=== PATIENT | male | born 1985 | race Hispanic/Latino ===

== ENCOUNTER 2021-07-28 21:08 | Inpatient (IN) | payer BC ==
[2021-07-28] MEDS ORDERED: ALBUTEROL 2.5 MG/3 ML NEBU IH ONE (21:14)
[2021-07-28] MEDS ORDERED: EPINEPHrine/PF 1 MG/1 ML INJ SUB-Q ONE (21:15)
[2021-07-28] MEDS ORDERED: dexAMETHasone 20 MG/5 ML VIAL IM ONE (21:15)
--- NOTE | 2021-07-28 21:57 | XRay Report ---
NECK SOFT TISSUE 2 VIEW(S) INDICATION / CLINICAL INFORMATION: dyspnea and neck swelling COMPARISON: None available. FINDINGS: EPIGLOTTIS: No significant abnormality. RETROPHARYNGEAL SOFT TISSUES: No significant abnormality. AIRWAY: No significant abnormality. RADIOPAQUE FOREIGN BODY: None. SKELETAL SYSTEM: No significant abnormality. ADDITIONAL FINDINGS: None. IMPRESSION: 1. No significant abnormality. Signer Name: Irvin Holley MD Signed: 07/28/2021 9:52 PM Workstation Name: [id number]
[2021-07-28] MEDS ORDERED: SODIUM CHLORIDE 0.9% 1000 ML 1,000 ML IV ONE (23:24)
[2021-07-28] MEDS ORDERED: diphenhydrAMINE 50 MG/ML VIAL IV STA (23:24)
[2021-07-28 23:46] LABS: Basophils % (Auto) 0.5 % (0.0-1.8); Eosinophils # (Auto) 0.1 K/mm3 (0.0-0.4); Lymphocytes # (Auto) 1.1 K/mm3 (1.2-5.4); Mean Corpuscular HGB Conc 36 % (32-34); Mean Corpuscular Volume 86 fl (84-94); Monocytes # (Auto) 0.5 K/mm3 (0.0-0.8); Monocytes % (Auto) 4.7 % (0.0-7.3); Platelet Count 335 K/mm3 (140-440); Red Cell Distribution Width 13.2 % (13.2-15.2)
[2021-07-28 23:54] LABS: BUN/Creatinine Ratio 23; Blood Urea Nitrogen 14 mg/dL (9-20); Calcium 9.4 mg/dL (8.4-10.2); Hemolysis Index 2
[2021-07-29 00:04] LABS: Hematocrit 40.2 % (35.5-45.6); Hemoglobin 14.5 gm/dl (11.8-15.2)
--- NOTE | 2021-07-29 00:26 | Cat Scan Report ---
CT neck wo con INDICATION / CLINICAL INFORMATION: 36 years Male; coughing, sob, allergic reaction. TECHNIQUE: Contiguous thin cut axial images obtained through the neck following IV contrast. Sagittal and barber l reconstructions performed by the technologist. All CT scans at this location are performed using CT dose reduction for ALARA by means of automated exposure control. COMPARISON: None available. FINDINGS: MUCOSAL SPACE: The motion degrades the image quality particularly along the pharynx which may be rela kolby to swallowing. There is also streak artifact resulting from the dental amalgam. The visualized es ophagus appears to be appropriate in size. The laryngeal structures are better visualized and appear fairly symmetric. The upper esophagus is grossly unremarkable. LYMPH NODES: There are multiple scattered cervical lymph nodes most notable within the jugulodigastri c regions with the largest node measuring approximately 1.3 cm in short axis dimension. The findings are nonspecific though may be reactive. However, the nodes are borderline by size criteria and number and correlation be needed regarding inflammatory process. SALIVARY GLANDS: The visualized parotid and submandibular glands demonstrates symmetric attenuation w ithout calcification. THYROID GLAND: Unremarkable. PARANASAL SINUSES: There is minimal mucosal thickening within the maxillary sinuses. SPINE: No significant abnormality of the cervical spine appreciated. VASCULAR STRUCTURES: The vascular structures are grossly unremarkable on this noncontrast study. Ther e is no significant narrowing of the visualized airway. IMPRESSION: 1. There are scattered cervical lymph nodes which are borderline by size criteria as detailed above a nd correlation would be needed. 2. The motion degrades the image quality as described; however, there is no clear CT evidence of sign ificant focal inflammatory changes involving visualized soft tissues of the neck on this noncontrast study. Signer Name: Musa Britt MD Signed: 07/29/2021 12:21 AM Workstation Name: [id number]
[2021-07-29] MEDS ORDERED: ONDANSETRON 4 MG/2 ML INJ IV ONE (00:43)
[2021-07-29] MEDS ORDERED: methylPREDNISolone Sod Succinate 125 MG/2 ML INJ IV ONE (01:50)
[2021-07-29] MEDS ORDERED: ALBUTEROL 2.5 MG/3 ML NEBU IH ONE ×2 (01:50→04:18)
--- NOTE | 2021-07-29 01:54 | Emergency Department Report ---
ED Allergic Reaction HPI - General Chief complaint: Adult Asthma Stated complaint: VICKEY Time Seen by Provider: 07/28/21 21:14 Source: patient, family Mode of arrival: Ambulatory Limitations: No Limitations - History of Present Illness MD Complaint: allergic reaction, facial swelling -: Gradual, days(s) Exposure: unknown Symptoms: itching, facial swelling, difficulty swallowing, hoarseness Severity: mild, moderate Treatment Prior to Arrival: none Previous Allergy History: none - Related Data Home Medications Medication Instructions Recorded Confirmed Last Taken No Known Home Medications [No 07/28/21 07/28/21 Unknown Reported Home Medications] Allergies Allergy/AdvReac Type Severity Reaction Status Date / Time No Known Allergies Allergy Verified 07/28/21 21:14 ED Review of Systems ROS: Stated complaint: VICKEY Other details as noted in HPI Comment: All other systems reviewed and negative ED Past Medical Hx - Past Medical History Previous Medical History?: Yes Hx Asthma: Yes - Surgical History Past Surgical History?: No - Social History Smoking Status: Never Smoker Substance Use Type: None - Medications Home Medications: Home Medications Medication Instructions Recorded Confirmed Last Taken Type No Known Home Medications [No 07/28/21 07/28/21 Unknown History Reported Home Medications] ED Physical Exam - General Limitations: No Limitations General appearance: alert, in no apparent distress - Head Head exam: Present: atraumatic, normocephalic - Eye Eye exam: Present: normal appearance, PERRL - ENT ENT exam: Present: mucous membranes moist, other (Erythema to the pharynx the no swelling to the posterior pharynx region. Appears to be some mild swelling to the submental region on the exterior aspect. But no Gorter is present.) - Neck Neck exam: Present: normal inspection, other (Mild swelling to the submandibular). Absent: lymphadenopathy, thyromegaly - Respiratory Respiratory exam: Present: normal lung sounds bilaterally. Absent: respiratory distress, stridor - Cardiovascular Cardiovascular Exam: Present: normal rhythm, tachycardia, normal heart sounds. Absent: systolic murmur, diastolic murmur, rubs, gallop - GI/Abdominal GI/Abdominal exam: Present: soft, normal bowel sounds - Rectal Rectal exam: Present: deferred - Extremities Exam Extremities exam: Present: normal inspection - Back Exam Back exam: Present: normal inspection - Neurological Exam Neurological exam: Present: alert, oriented X3 - Psychiatric Psychiatric exam: Present: normal affect, normal mood - Skin Skin exam: Present: warm, dry, intact, normal color. Absent: rash ED Course Vital Signs 07/28/21 07/28/21 07/29/21 21:27 21:41 04:04 Temperature 98.5 F 99.0 F Pulse Rate 122 H 85 Pulse Rate [ 112 H Bilateral Throughout] Respiratory 26 H 19 Rate Respiratory 22 Rate [Bilateral Throughout] Blood Pressure 155/109 125/79 [Left] O2 Sat by Pulse 100 99 Oximetry 07/29/21 04:05 Temperature Pulse Rate Pulse Rate [ Bilateral Throughout] Respiratory 19 Rate Respiratory Rate [Bilateral Throughout] Blood Pressure [Left] O2 Sat by Pulse 99 Oximetry - Consultations Consultation #1: 07/29/21 23:42 Case discussed with attending Dr. Lerner who had [id number] with the patient recommend CT scan and admission for observation Consultation #2: 07/29/21 03:44 Consultation #3: 07/29/21 04:14 Case was discussed with the hospitalist Dr. Barkley who is aware of the case. He is aware patient was evaluated by the attending who advised for admission and states he will come down to admit but did want the patient to have 80 mg of Solu-Medrol added to the regimen in conjunction with 1 more respiratory treatment ED Medical Decision Making - Lab Data Result diagrams: 07/28/21 23:25 07/28/21 23:25 - Radiology Data Radiology results: [place] [address] Cat Scan Report Signed Patient: PINKY CASTAÑEDA R#: [id number] : 1985 Acct:[id number] Age/Sex: 36 / M ADM Date: 07/28/21 Loc: ED Attending Dr: Ordering Physician: ROSELINE RODRIGUEZ Date of Service: 07/28/21 Procedure(s): CT neck wo con Accession Number(s): [id number] cc: ROSELINE RODRIGUEZ CT neck wo con INDICATION / CLINICAL INFORMATION: 36 years Male; coughing, sob, allergic reaction. TECHNIQUE: Contiguous thin cut axial images obtained through the neck following IV contrast. Sagittal and coronal reconstructions performed by the technologist. All CT scans at this location are performed using CT dose reduction for ALARA by means of automated exposure control. COMPARISON: None available. FINDINGS: MUCOSAL SPACE: The motion degrades the image quality particularly along the pharynx which may be related to swallowing. There is also streak artifact resulting from the dental amalgam. The visualized esophagus appears to be appropriate in size. The laryngeal structures are better visualized and appear fairly symmetric. The upper esophagus is grossly unremarkable. LYMPH NODES: There are multiple scattered cervical lymph nodes most notable within the jugulodigastric regions with the largest node measuring approximately 1.3 cm in short axis di mension. The findings are nonspecific though may be reactive. However, the nodes are borderline by size criteria and number and correlation be needed regarding inflammatory pr ocess. SALIVARY GLANDS: The visualized parotid and submandibular glands demonstrates symmetric attenuation without calcification. THYROID GLAND: Unremarkable. PARANASAL SINUSES: There is minimal mucosal thickening within the maxillary sinuses. SPINE: No significant abnormality of the cervical spine appreciated. VASCULAR STRUCTURES: The vascular structures are grossly unremarkable on this noncontrast study. There is no significant narrowing of the visualized airway. IMPRESSION: 1. There are scattered cervical lymph nodes which are borderline by size criteria as detailed above and correlation would be needed. 2. The motion degrades the image quality as described; however, there is no clear CT evidence of significant focal inflammatory changes involving visualized soft tissues of the neck on this noncontrast study. Signer Name: Musa Britt MD Signed: 07/29/2021 12:21 AM Workstation Name: [id number] Transcribed By: MR Dictated By: Musa Britt MD Electronically Authenticated By: Musa Britt MD Signed Date/Time: 07/29/2120 DD/ TD/TT: Print Critical care attestation.: If time is entered above; I have spent that time in minutes in the direct care of this critically ill patient, excluding procedure time. ED Disposition Clinical Impression: Cough, Serious allergic reaction with severe difficult breathing Disposition: ADMITTED INPATIENT Is pt being admited?: Yes Does the pt Need Aspirin: No Condition: Stable
[2021-07-29] MEDS ORDERED: methylPREDNISolone Sod Succinate 125 MG/2 ML INJ ONE (04:18)
[2021-07-29] MEDS ORDERED: KETOROLAC 30 MG/1 ML INJ IV ONE (04:29)
[2021-07-29] MEDS ORDERED: HYDROmorphone 1 MG/1 ML INJ IV PRN (05:40)
[2021-07-29] MEDS ORDERED: ACETAMINOPHEN 325 MG TAB PO PRN (05:40)
[2021-07-29] MEDS ORDERED: ONDANSETRON 4 MG/2 ML INJ IV PRN (05:40)
[2021-07-29] MEDS ORDERED: ALBUTEROL 2.5 MG/3 ML NEBU IH PRN (05:40)
[2021-07-29] MEDS ORDERED: MORPHINE 2 MG/1 ML INJ IV PRN (05:40)
[2021-07-29] MEDS ORDERED: guaiFENesin DM 200/20 MG ORAL LIQD 10 ML PO PRN (05:48)
--- NOTE | 2021-07-29 05:48 | History and Physical Report ---
History of Present Illness Date of examination: 07/29/21 Date of admission: 07/29/21 Chief complaint: Difficulty in breathing Sore throat Allergic reaction History of present illness: This is a 36 years old male with history of asthma was brought to the hospital because of itching facial swelling difficulty in swallowing hoarseness and shortness of breath since yesterday. Patient is still complain of sore throat but shortness of breath is improved also complained of coughing. Patient in the emergency room got Decadron and Solu-Medrol breathing treatment. CT neck showed 1. There are scattered cervical lymph nodes which are borderline by size criteria as detailed above and correlation would be needed. 2. The motion degrades the image quality as described; however, there is no clear CT evidence of significant focal inflammatory changes involving visualized soft tissues of the neck on this noncontrast study. so going to admit the patient we will put the patient on steroid neb treatment and antibiotic Past History Past Medical History: other (Asthma exacerbation) Past Surgical History: No surgical history Social history: no significant social history Family history: no significant family history Medications and Allergies Allergies Allergy/AdvReac Type Severity Reaction Status Date / Time No Known Allergies Allergy Verified 07/28/21 21:14 Home Medications Medication Instructions Recorded Confirmed Last Taken Type No Known Home Medications [No 07/28/21 07/28/21 Unknown History Reported Home Medications] Review of Systems Cardiovascular: shortness of breath, dyspnea on exertion Respiratory: cough, shortness of breath, dyspnea on exertion, wheezing Exam - Constitutional Vitals: Temp Pulse Resp BP Pulse Ox 99.0 F 112 H 22 125/79 99 07/29/21 04:04 07/29/21 04:53 07/29/21 04:53 07/29/21 04:04 07/29/21 04:05 General appearance: Present: no acute distress, well-nourished - EENT Eyes: Present: PERRL ENT: hearing intact, clear oral mucosa - Neck Neck: Present: supple, normal ROM - Respiratory Respiratory effort: normal Respiratory: bilateral: wheezing - Cardiovascular Heart Sounds: Present: S1 & S2. Absent: rub, click - Extremities Extremities: pulses symmetrical, No edema Peripheral Pulses: within normal limits - Abdominal General gastrointestinal: Present: soft, non-tender, non-distended, normal bowel sounds Male genitourinary: Present: normal - Integumentary Integumentary: Present: clear, warm, dry - Musculoskeletal Musculoskeletal: gait normal, strength equal bilaterally - Psychiatric Psychiatric: appropriate mood/affect, intact judgment & insight - Neurologic Neurologic: CNII-XII intact, moves all extremities Results - Labs CBC & Chem 7: 07/28/21 23:25 07/28/21 23: Labs: Laboratory Last Values WBC 10.4 K/mm3 (4.5-11.0) 07/28/21: RBC 4.70 M/mm3 (3.65-5.03) 07/28/21 23: Hgb 14.5 gm/dl (11.8-15.2) 07/28/21: Hct 40.2 % (35.5-45.6) 07/28/21: MCV 86 fl (84-94) 07/28/21 23: MCH 31 pg (28-32) 07/28/21: MCHC 36 % (32-34) H 07/28/21: RDW 13.2 % (13.2-15.2) 07/28/21: Plt Count 335 K/mm3 (140-440) 07/28/21 23: Lymph % (Auto) 11.0 % (13.4-35.0) L 07/28/21: [place] % (Auto) 4.7 % (0.0-7.3) 07/28/21: Eos % (Auto) 1.0 % (0.0-4.3) 07/28/21: Baso % (Auto) 0.5 % (0.0-1.8) 07/28/21: Lymph # (Auto) 1.1 K/mm3 (1.2-5.4) L 07/28/21: [place] # (Auto) 0.5 K/mm3 (0.0-0.8) 07/28/21: Eos # (Auto) 0.1 K/mm3 (0.0-0.4) 07/28/21: Baso # (Auto) 0.0 K/mm3 (0.0-0.1) 07/28/21 23: Seg Neutrophils % 82.8 % (40.0-70.0) H 07/28/21 23:25 Seg Neutrophils # 8.6 K/mm3 (1.8-7.7) H 07/28/21 23:25 Sodium 142 mmol/L (137-145) 07/28/21 23:25 Potassium 3.6 mmol/L (3.6-5.0) 07/28/21 23:25 Chloride 101.6 mmol/L (98-107) 07/28/21 23:25 Carbon Dioxide 26 mmol/L (22-30) 07/28/21 23:25 Anion Gap 18 mmol/L 07/28/21 23:25 BUN 14 mg/dL (9-20) 07/28/21 23:25 Creatinine 0.6 mg/dL (0.8-1.3) L 07/28/21 23:25 Estimated GFR > 60 ml/min 07/28/21 23:25 BUN/Creatinine Ratio 23 % 07/28/21 23:25 Glucose 125 mg/dL (75-100) H 07/28/21 23:25 Calcium 9.4 mg/dL (8.4-10.2) 07/28/21 23:25 - Imaging and Cardiology Chest x-ray: report reviewed Assessment and Plan VTE prophylaxis?: Chemical Plan of care discussed with patient/family: Yes - Patient Problems (1) Asthma Current Visit: Yes Status: Acute Plan to address problem: Admit the patient to the medical floor. Oxygen via nasal current 3 L/min. DuoNeb by nebulizer every 4 hours. Albuterol via nebulizer every 4 hours as needed. Solu-Medrol 40 mg IV every 6 hours. Singular's 10 mg p.o. daily. Rocephin 2 g IV daily. Consult pulmonary if needed (2) Cough Current Visit: Yes Status: Acute Plan to address problem: Robitussin 10 ml p.o. every 6 hours as needed (3) Serious allergic reaction with severe difficult breathing Current Visit: Yes Status: Acute Plan to address problem: Oxygen via nasal current 3 L/min. DuoNeb by nebulizer every 4 hours. Albuterol via nebulizer every 4 hours as needed. Solu-Medrol 40 mg IV every 6 hours. Singular's 10 mg p.o. daily. Rocephin 2 g IV daily. Consult pulmonary if needed (4) DVT prophylaxis Current Visit: Yes Status: Acute Plan to address problem: Heparin 5000 units subcu every 12 hours for DVT prophylaxis. Pepcid 20 mg p.o. twice daily for GI prophylaxis. Patient is a full code
[2021-07-29] MEDS ORDERED: cefTRIAXone/NS 2 GM/100 ML 2 GM/100 ML BAG IV SCH (06:00)
[2021-07-29] MEDS ORDERED: D5W/0.45% NACL 1,000 ML IV SCH (06:00)
[2021-07-29 06:23] VITALS: BP 111/66
[2021-07-29] MEDS ORDERED: HEPARIN 5,000 UNIT/1 ML VIAL SUB-Q SCH (10:00)
[2021-07-29] MEDS ORDERED: FAMOTIDINE 20 MG/2 ML INJ IV SCH (10:00)
[2021-07-29] MEDS ORDERED: methylPREDNISolone Sod Succinate 40 MG/1 ML INJ IV SCH (10:00)
[2021-07-29] MEDS: IPRATROPIUM/ALBUTEROL SULFATE 3 ML AMPUL.NEB IH SCH ×2 (10:26→14:55)
[2021-07-29] MEDS ORDERED: MONTELUKAST 10 MG TAB PO SCH (22:00)
== END 2021-07-29 16:45 | disposition home or self-care (01) | DRG 916 ==
LOC: ED 21:08 → 3A 07-29 05:41
PROVIDERS: ADMIT Hospitalist; ATTEND Student in an Organized Health Care Education/Training Program
DX: T78.40XA Allergy, unspecified, initial encounter (principal); R05.9 Cough, unspecified; R06.00 Dyspnea, unspecified; J45.909 Unspecified asthma, uncomplicated
CPT/HCPCS: 36415; 70360; 70490; 80048; 85025; 94640; 94644; 94760; G0378; J3490; J7070; Q0162; J0171; J0696; J1100; J1170; J1200; J1644; J1885; J2270; J2920; J2930; J7030